=== PATIENT | female | born 1945 | race Caucasian/White ===

== ENCOUNTER 2021-01-29 13:22 | Emergency (ER) | payer MEDICARE, OTHER ==
[~2021-01-29] VITALS: Ht 144.8 cm; Wt 70.3 kg
--- NOTE | 2021-01-29 13:45 | NUR ---
Patient ELINOR Daughter from Home a Fall in backyard now having pain on Right Shoulder. Patient in [facility] with no respiratory distress noted. Respirations even an unlabored. Daughter at bedside. will continue to monitor
[2021-01-29] MEDS ORDERED: HYDROCODONE/APAP 5/325MG TABLET ONE (14:19)
[2021-01-29] MEDS ORDERED: HYDROCODONE/APAP 5/325MG TABLET PO ONE (14:30)
[2021-01-29] MEDS ORDERED: PROPOFOL 20 ML IV ONE ×2 (15:13→18:50)
--- NOTE | 2021-01-29 16:47 | NUR ---
CALLED DR PYLE, SPEAKING WITH DR BLAIR
[2021-01-29] MEDS ORDERED: OMEP20CA15 PO (17:05)
[2021-01-29] MEDS ORDERED: IBUP-1955 PO (17:05)
--- NOTE | 2021-01-29 17:06 | NUR ---
Closed reduction of right shoulder dislocation attempt unsuccessful x2. Sling applied and patient daughter at bedside.
[2021-01-29] MEDS ORDERED: BUPIVACAINE 0.25% 75 MG/30 ML VIAL ONE (17:56)
[2021-01-29] MEDS ORDERED: LIDOCAINE HCL/MPF 1% 30 ML VIAL IJ ONE (17:56)
--- NOTE | 2021-01-29 18:25 | NUR ---
PATIENT IN BED, RESTING COMFORTABLY, EASILY AROUSED. NO RESPIRATORY DISTRESS NOTED AT THIS TIME. RESPIRATIONS EVEN AND UNLABORED. WILL CONTINUE TO MONITOR.
[2021-01-29] MEDS ORDERED: PROPOFOL 200 MG/20 ML VIAL IV ONE ×3 (18:30→19:30)
[2021-01-29] MEDS ORDERED: MORPHINE SULFATE INJ 4 MG/ML DISP.SYRIN ONE (18:33)
--- NOTE | 2021-01-29 18:40 | NUR ---
DUPLICATE ORDER OF MORPHINE
[2021-01-29] MEDS ORDERED: ONDANSETRON HCL/PF 4 MG/2 ML VIAL ONE (18:43)
[2021-01-29] MEDS ORDERED: MORPHINE SULFATE INJ 10 MG/ML DISP.SYRIN IV ONE (19:00)
[2021-01-29] MEDS ORDERED: ONDANSETRON HCL/PF 4 MG/2 ML VIAL IV ONE (19:00)
[2021-01-29] MEDS ORDERED: MORPHINE SULFATE INJ 2 MG/ML DISP.SYRIN IV ONE (19:00)
[2021-01-29] MEDS ORDERED: HYDR-3972 PO (19:31)
--- NOTE | 2021-01-29 19:35 | NUR ---
Dr Del Rosario and Dr Jones attempted closed reduction of Right shoulder dislocation with success. Daughter at bedside. Patient in stable condition with no respiratory distress noted. respiration even and unlabored. will continue to monitor
--- NOTE | 2021-01-29 20:03 | NUR ---
Patient discharged to home in stable condition with daughter. Written and verbal after care instructions given. Patient verbalizes understanding of instruction.
[2021-01-29 22:55] VITALS: BP 158/88
== END 2021-01-29 20:03 | disposition home or self-care (01) ==
LOC: ER 13:43
DX: S43.014A Anterior dislocation of right humerus, initial encounter (principal); W01.0XXA Fall on same level from slipping, tripping and stumbling without subsequent striking against object, initial encounter; Y92.017 Garden or yard in single-family (private) house as the place of occurrence of the external cause
CPT/HCPCS: 23650; 71100; 73030 ×4; 73060; 87426; 96374; 96375; 99152; 99291; J2270; J2405; J2704 ×2; J3490 ×2; J7030; C9803; G0500

== ENCOUNTER 2022-01-25 13:37 | Emergency (ER) | payer MEDICARE, OTHER ==
[~2022-01-25] VITALS: Ht 149.9 cm; Wt 73.0 kg
[~2022-01-25 13:37] MED LIST: HYDR-3972 PO; IBUP-1955 PO; OMEP20CA15 PO
[2022-01-25] MEDS ORDERED: KETOROLAC TROMETHAMINE INJ 30 MG/ML VIAL IM ONE (15:00)
[2022-01-25] MEDS ORDERED: KETOROLAC TROMETHAMINE 15 MG/ML VIAL ONE (15:04)
--- NOTE | 2022-01-25 15:12 | NUR ---
TORADOL IM GIVEN ON LEFT DELTOID
--- NOTE | 2022-01-25 15:14 | NUR ---
PATTERNMAKER BENCH AT BEDSIDE FOR XRAY
--- NOTE | 2022-01-25 15:14 | NUR ---
PHLEB TECH AT BEDSIDE FOR BLOOD DRAW
[2022-01-25 15:38] LABS: BASOPHILS % (AUTO) 0.3 % (0.0-2.0); EOSINOPHILS % (AUTO) 0.4 % (0.0-6.0); HEMATOCRIT 38 % (33-45); HEMOGLOBIN 12.4 g/dL (11.5-14.8); LYMPHOCYTES # (AUTO) 3.5 K/uL (0.8-4.8); LYMPHOCYTES % (AUTO) 42.7 % (20.0-44.0); MEAN CORPUSCULAR HGB CONC 33 g/dl (31.0-36.0); MEAN CORPUSCULAR VOLUME 93 fL (82-100); MONOCYTES # (AUTO) 0.7 K/uL (0.1-1.30); MONOCYTES % (AUTO) 8.1 % (2.0-12.0); NEUTROPHILS % (AUTO) 48.5 % (43.0-81.0); PLATELET COUNT (AUTO) 256 K/uL (150-450); RED BLOOD CELL COUNT(AUTO) 4.04 MIL/uL (4.0-5.2); WHITE BLOOD COUNT (AUTO) 8.2 K/uL (4.3-11.0)
[2022-01-25 15:48] LABS: CALCIUM, SERUM 9.1 mg/dL (8.5-10.1); CARBON DIOXIDE 29 mmol/L (21-32); CHLORIDE 101 mmol/L (98-107); CREATININE 0.7 mg/dL (0.6-1.3); GLUCOSE 88 mg/dL (74-106); POTASSIUM 3.4 mmol/L (3.5-5.1); SODIUM SERUM 139 mmol/L (136-145); UREA NITROGEN, BLOOD 15 mg/dL (7-18)
[2022-01-25 16:01] LABS: ALANINE AMINOTRANSFERASE 54 U/L (12-78); ALKALINE PHOSPHATASE 77 U/L (46-116); ASPARTATE AMINOTRANSFERASE 37 U/L (15-37); BILIRUBIN,DIRECT 0.1 mg/dL (0.0-0.2); BILIRUBIN,TOTAL 0.5 mg/dL (0.2-1.0); TOTAL PROTEIN, SERUM 7.5 g/dL (6.4-8.2)
--- NOTE | 2022-01-25 17:29 | NUR ---
Patient discharged to home in stable condition. Written and verbal after care instructions given. Patient verbalizes understanding of instruction.
[2022-01-25 17:36] VITALS: BP 135/76
== END 2022-01-25 17:37 | disposition home or self-care (01) ==
LOC: ER 13:39
DX: M17.12 Unilateral primary osteoarthritis, left knee (principal); R60.0 Localized edema; M25.511 Pain in right shoulder; M81.0 Age-related osteoporosis without current pathological fracture; Z79.899 Other long term (current) drug therapy
CPT/HCPCS: 99284; 96372; 73564; 73030; 85025; 80048; 80076; 36415; 83880; J1885

== ENCOUNTER 2022-04-17 08:35 | Emergency (ER) | payer MEDICARE ==
[~2022-04-17] VITALS: Ht 154.9 cm; Wt 72.6 kg
[2022-04-17 08:51] VITALS: BP 188/75
[2022-04-17] MEDS ORDERED: IV NS 0.9% 1,000 ML IV ONE (09:00)
[2022-04-17] MEDS ORDERED: MORPHINE SULFATE INJ 2 MG/ML DISP.SYRIN IV ONE (09:00)
[2022-04-17] MEDS ORDERED: ONDANSETRON HCL/PF 4 MG/2 ML VIAL IV ONE (09:00)
[2022-04-17] MEDS ORDERED: MORPHINE SULFATE INJ 4 MG/ML DISP.SYRIN ONE (09:06)
[2022-04-17] MEDS ORDERED: ONDANSETRON HCL/PF 4 MG/2 ML VIAL ONE (09:06)
[2022-04-17] MEDS ORDERED: IBUP-1953 PO (09:51)
[2022-04-17] MEDS ORDERED: KETOROLAC TROMETHAMINE INJ 30 MG/ML VIAL ONE (09:58)
[2022-04-17] MEDS ORDERED: KETOROLAC TROMETHAMINE INJ 30 MG/ML VIAL IV ONE (10:00)
--- NOTE | 2022-04-17 10:06 | NUR ---
Patient discharged to home in stable condition. Written and verbal after care instructions given. Patient verbalizes understanding of instruction.
== END 2022-04-17 10:32 | disposition home or self-care (01) ==
LOC: ER 08:39
DX: M19.90 Unspecified osteoarthritis, unspecified site (principal); M25.511 Pain in right shoulder; Z79.899 Other long term (current) drug therapy
CPT/HCPCS: 99284; 96374; 96375; 96361; 73030; J2270; J1885; J2405; J7030

== ENCOUNTER 2022-06-12 11:07 | Inpatient (IN) | payer MEDICARE ==
[~2022-06-12] VITALS: Ht 152.4 cm; Wt 73.0 kg
[~2022-06-12 11:07] MED LIST changes: +IBUP-1953 PO
[2022-06-12] MEDS ORDERED: LIDOCAINE 5% (PATCH) 1 EA PATCH TP SCH (11:30)
[2022-06-12] MEDS ORDERED: ACETAMINOPHEN 325 MG TABLET PO ONE (11:30)
--- NOTE | 2022-06-12 11:30 | NUR ---
bib family c/o R side rib area pain, SOB x 3 days s/p GLF. AMBULATORY, PLACED IN BED, AAOX4, BREATHING EVEN AND UNLABORED SATURATING AT 97%RA
[2022-06-12] MEDS ORDERED: LIDOCAINE 5% (PATCH) 1 EA PATCH TP ONE ×2 (11:34→11:41)
[2022-06-12] MEDS ORDERED: ACETAMINOPHEN 325 MG TABLET ONE ×2 (11:35→11:41)
[2022-06-12] MEDS ORDERED: VANCOMYCIN 1 GM in IV D5W 250 ML IV ONE (15:00)
[2022-06-12] MEDS ORDERED: CEFEPIME 1 GM in IV D5W 50 ML IV ONE (15:00)
[2022-06-12 15:27] LABS: BASOPHILS % (AUTO) 0.1 % (0.0-2.0); EOSINOPHILS % (AUTO) 0.1 % (0.0-6.0); HEMATOCRIT 40 % (33-45); HEMOGLOBIN 13.2 g/dL (11.5-14.8); LYMPHOCYTES # (AUTO) 1.5 K/uL (0.8-4.8); LYMPHOCYTES % (AUTO) 15.4 % (20.0-44.0); MEAN CORPUSCULAR HGB CONC 33 g/dl (31.0-36.0); MEAN CORPUSCULAR VOLUME 97 fL (82-100); MONOCYTES # (AUTO) 0.6 K/uL (0.1-1.30); MONOCYTES % (AUTO) 6.1 % (2.0-12.0); NEUTROPHILS # (AUTO) 7.8 K/uL (1.8-8.9); NEUTROPHILS % (AUTO) 78.3 % (43.0-81.0); PLATELET COUNT (AUTO) 192 K/uL (150-450); RED BLOOD CELL COUNT(AUTO) 4.13 MIL/uL (4.0-5.2)
[2022-06-12 15:37] LABS: CALCIUM, SERUM 9.3 mg/dL (8.5-10.1); CREATININE 0.6 mg/dL (0.6-1.3)
[2022-06-12 15:53] LABS: ALBUMIN 3.7 g/dL (3.4-5.0); BILIRUBIN,DIRECT 0.1 mg/dL (0.0-0.2); BILIRUBIN,TOTAL 0.6 mg/dL (0.2-1.0); TOTAL PROTEIN, SERUM 7.4 g/dL (6.4-8.2)
--- NOTE | 2022-06-12 18:48 | NUR ---
MARISELA FROM [facility] [employer] CALLED FROM [phone] [phone]
[2022-06-12] MEDS ORDERED: MAGNESIUM HYDROXIDE 30 ML UDC PO PRN (19:00)
[2022-06-12] MEDS ORDERED: Z GUARD REMEDY 4 OZ OINT TP PRN (19:00)
[2022-06-12] MEDS ORDERED: MAG HYDROX/AL HYDROX/SIMETH 30 ML UDC PO PRN (19:00)
[2022-06-12] MEDS ORDERED: IPRATROPIUM NEB FS 0.5 MG/2.5 ML AMPUL.NEB NEB PRN (19:00)
[2022-06-12] MEDS ORDERED: ACETAMINOPHEN 325 MG TABLET PO PRN (19:00)
[2022-06-12] MEDS ORDERED: CEFTRIAXONE 1 G in IV D5W 50 ML IV SCH (19:00)
[2022-06-12] MEDS ORDERED: ALBUTEROL FS 2.5 MG/0.5 ML VIAL.NEB NEB PRN (19:00)
[2022-06-12] MEDS ORDERED: ONDANSETRON HCL/PF 4 MG/2 ML VIAL IVP PRN (19:00)
[2022-06-12] MEDS ORDERED: AZITHROMYCIN 500 MG in IV D5W 250 ML IV SCH (19:00)
--- NOTE | 2022-06-12 19:10 | NUR ---
[employer] PEER TO PEER
--- NOTE | 2022-06-12 19:41 | NUR ---
room 312-1
--- NOTE | 2022-06-12 20:05 | NUR ---
REPORT GIVEN TO GILBERTO SUTHERLAND ROOM 312-1 FOR JARED
[2022-06-12] MEDS ORDERED: IV NS 0.9% 250 ML IV ONE (20:26)
[2022-06-12] MEDS ORDERED: CT SWABBABLE VALVE TRANS SET 1 EA INFUS.SET MC ONE (20:26)
[2022-06-12] MEDS ORDERED: IOHEXOL-350 100 ML VIAL IV ONE (20:26)
[2022-06-12 21:00] VITALS: BP 162/68
--- NOTE | 2022-06-12 21:00 | NUR ---
DISPATCH MACHINE RUNNER ADMITTING NOTE PATIENT TRANSFERRED FROM ER TO 3RD FLOOR [facility] AT 2040H VIA GURNEY; PATIENT IS ALERT AND ORIENTED X 4, THAI SPEAKING BUT CAN UNDERSTAND A LITTLE CENTRAL AFRICAN, WITH DAUGHTER ACTING SECURITY INTELLIGENCE ANALYST; PATIENT ORIENTED TO STAFF AND ROOM; VITAL SIGNS TAKEN; ON ROOM AIR TOLERATING WELL AND NO RESPIRATORY DISTRESS NOTED; WITH IV ACCESS IN LEFT ARM, INTACT AND PATENT; HOOKED TO SLAB DEPILER OPERATOR CURRENTLY READING SINUS RHYTHM; WITH BRUISES ON LEFT LOWER LEG, RIGHT BUTTOCKS, ARM AND BREAST, ALL CAPTURED AND INSERTED IN CHARTS; SAFETY PRECAUTIONS IMPLEMENTED, BED IN LOW POSITION, LOCKED, SIDE RAILS UP X 3, CALL LIGHT WITHIN REACH; WILL CONTINUE TO MONITOR THROUGHOUT SHIFT
[2022-06-12] MEDS ORDERED: CEFTRIAXONE 1 G VIAL ONE (21:18)
[2022-06-12] MEDS: HYDROCODONE/APAP 5/325MG TABLET PO PRN (21:51)
[2022-06-12] MEDS ORDERED: AZITHROMYCIN 500 MG VIAL ONE (21:52)
[2022-06-12] MEDS: IV 1/2NS 1000 ML 1,000 ML IV PRN (22:46)
[2022-06-12] MEDS: APIXABAN 5 MG TABLET PO SCH (22:55)
--- NOTE | 2022-06-12 23:00 | NUR ---
DIRECTOR MISSION NOTE PATIENT CAME FROM ER AT 2040H; ROCEPHIN AND AZITHROMYCIN WERE ADMINISTERED AT 2131H AND 2250H RESPECTIVELY; IMAGING DEPARTMENT CALLED AT 2220H AND INFORMED THAT PATIENT WAS POSITIVE ON BILATERAL PULMONARY EMBOLISM. IMMEDIATELY INFORMED DR. SWARTZ AND HE ORDERED ELIQUIS BID. ADMINISTERED FIRST DOSE OF ELIQUIS AT 2255H.
[2022-06-12] MEDS: ZOLPIDEM TARTRATE 5 MG TABLET PO PRN (23:03)
--- NOTE | 2022-06-12 23:15 | NUR ---
CANVAS BASTER JUMPBASTING NOTE PATIENT ASKED FOR MEDICATION TO HELP HER FALL ASLEEP. ADMINISTERED TABITHA CHO AT 2303H.
[2022-06-13 05:43] LABS: BASOPHILS % (AUTO) 0.2 % (0.0-2.0); EOSINOPHILS % (AUTO) 0.2 % (0.0-6.0); HEMATOCRIT 38 % (33-45); HEMOGLOBIN 12.5 g/dL (11.5-14.8); LYMPHOCYTES # (AUTO) 2.4 K/uL (0.8-4.8); LYMPHOCYTES % (AUTO) 24.1 % (20.0-44.0); MEAN CORPUSCULAR HGB CONC 33 g/dl (31.0-36.0); MEAN CORPUSCULAR VOLUME 98 fL (82-100); MONOCYTES # (AUTO) 0.8 K/uL (0.1-1.30); MONOCYTES % (AUTO) 8.2 % (2.0-12.0); NEUTROPHILS # (AUTO) 6.8 K/uL (1.8-8.9); NEUTROPHILS % (AUTO) 67.3 % (43.0-81.0); PLATELET COUNT (AUTO) 179 K/uL (150-450); RED BLOOD CELL COUNT(AUTO) 3.89 MIL/uL (4.0-5.2); WHITE BLOOD COUNT (AUTO) 10.1 K/uL (4.3-11.0)
[2022-06-13 06:02] LABS: CALCIUM, SERUM 8.8 mg/dL (8.5-10.1); CREATININE 0.7 mg/dL (0.6-1.3); MAGNESIUM 2.2 mg/dL (1.8-2.4); PHOSPHORUS 4.3 mg/dL (2.5-4.9); POTASSIUM 3.7 mmol/L (3.5-5.1)
[2022-06-13 06:12] LABS: THYROID STIMULATING HORMONE 1.944 uIU/mL (0.358-3.74)
--- NOTE | 2022-06-13 06:48 | NUR ---
RECORDS COORDINATOR CLOSING NOTE PATIENT IS ALERT AND ORIENTED X 4, LAO SPEAKING BUT CAN UNDERSTAND A LITTLE FRISIAN, WITH DAUGHTER ACTING LAYOUT DESIGNER; VITAL SIGNS TAKEN; ON ROOM AIR TOLERATING WELL AND NO RESPIRATORY DISTRESS NOTED; WITH IV ACCESS IN RIGHT AND LEFT ARM, INTACT AND PATENT; HOOKED TO NITROGLYCERIN SEPARATOR OPERATOR CURRENTLY READING SINUS RHYTHM 77BPM; WITH BRUISES ON LEFT LOWER LEG, RIGHT BUTTOCKS, ARM AND BREAST, ALL CAPTURED AND INSERTED IN CHART; ADMINISTERED MEDICATIONS PRESCRIBED; MONITORED ACCORDINGLY; PATIENT'S NEEDS ATTENDED; SAFETY PRECAUTIONS IMPLEMENTED, BED IN LOW POSITION, LOCKED, SIDE RAILS UP X 3, CALL LIGHT WITHIN REACH; WILL ENDORSE TO AM NURSE FOR CONTINUITY OF CARE
--- NOTE | 2022-06-13 07:30 | NUR ---
RN Receiving Note Patient AOx4 able to express her own concerns. Daughter at bed side wanting to help out pt. Patient states no issues, no signs of distress or discomfort. Will continue to monitor throughout shift and provide care as needed. All safety precautions taken, call light and table within reach.
[2022-06-13 08:00] VITALS: BP 147/73
[2022-06-13] MEDS: PANTOPRAZOLE 40 MG TABLET.DR PO SCH (08:05)
[2022-06-13] MEDS: APIXABAN 5 MG TABLET PO SCH ×2 (08:06→17:11)
[2022-06-13] MEDS ORDERED: HYDR-4303 PO (09:35)
[2022-06-13] MEDS ORDERED: ALEN70TA80 PO (09:35)
[2022-06-13] MEDS ORDERED: ERGO500093 PO (09:35)
[2022-06-13 12:00] VITALS: BP 143/72
[2022-06-13 16:00] VITALS: BP 117/65
[2022-06-13] MEDS: IV 1/2NS 1000 ML 1,000 ML IV PRN (17:17)
[2022-06-13] MEDS ORDERED: CEFTRIAXONE 1 G in IV D5W 50 ML IV SCH (18:00)
--- NOTE | 2022-06-13 18:23 | NUR ---
RN Closing Note Patient AOx4 able to express her own concerns. Patient remained safe throughout shift. Provided care as needed and administered medications as prescribed. Patient made aware of care of plan, verbalized agreement. All safety precautions taken, call light and table within reach bed at lowest position.
--- NOTE | 2022-06-13 19:30 | NUR ---
MS CAD MANAGER INITIAL NOTES RECEIVED REPORT FROM AM NURSE AND SEEN PT IN BED AWAKE AND ALERT ALBANIAN SPEAKING LADY ONLY, WITH HER DAUGHTER AT THE BEDSIDE COUNSELOR/ART THERAPIST. PT STILL WITH IVF OF 1/2 NS AT 75ML/HR INFUSING ON HER LEFT ARM PATENT AND INTACT. BREATHING EVEN AND NON-LABORED . SKIN WARM AND DRY TO TOUCH. PT AWARE WHERE SHE AT . DAUGHTER IS THE ONE CALLING THE NURSE IF PT NEEDS SOME HELP OR NEEDS THE NURSE. KEPT HER WARM AND COMFORTABLE AT ALL TIMES. PLACE KYLE LIGHT AT REACH. WILL CONTINUE MONITORING.
[2022-06-13 20:00] VITALS: BP 157/55
[2022-06-13] MEDS ORDERED: AZITHROMYCIN 500 MG in IV D5W 250 ML IV SCH (20:00)
--- NOTE | 2022-06-13 21:00 | NUR ---
MS TERMITE CONTROL SERVICE REPRESENTATIVE NOTES PT DAUGHTER AND SAYING THAT HER MOM COMPLAINING OF SHOULDER AND RIBS PAIN. NORCO TABLET PO GIVEN ORDERED FOR HER PAIN 12/30 , KEPT HER WARM AND COMFORTABLE AT ALL TIMES. WILL CONTINUE MONITORING.
[2022-06-13] MEDS: HYDROCODONE/APAP 5/325MG TABLET PO PRN (21:06)
--- NOTE | 2022-06-13 22:06 | NUR ---
MS SANITARY INSPECTOR NOTES RE-ASSESS PAIN MEDICATION . PER PT DAUGHTER HER MOM FEEL BETTER AND PAIN RELIEVED.
[2022-06-13] MEDS: ZOLPIDEM TARTRATE 5 MG TABLET PO PRN (22:45)
--- NOTE | 2022-06-14 03:12 | NUR ---
TELE BUILDING CONSULTANT NOTES PT SLEEPING WELL NO SIGNS OF ANY DISCOMFORT NOTED. KEPT HER WARM AND COMFORTABLE AT ALL TIMES. IVF STILL INFUSING . TELE SINUS RHYTHM PER MONITOR. Addendum: 06/14/22 at 0317 by FRANK OLIVIER LVN DISREGARD THIS NOTES BELONGS TO OTHER PT.
--- NOTE | 2022-06-14 03:17 | NUR ---
MS YARELIS NOTES PT SLEEPING COMFORTABLY IN BED WITHOUT ANY DISTRESS OR ANY DISCOMFORT. KEPT HER WARM AND SAFE AT ALL TIMES. WILL CONTINUE MONITORING. PLACE CALL LIGHT AT REACH. DAUGHTER AT THE BEDSIDE.
[2022-06-14 06:18] LABS: BASOPHILS % (AUTO) 0.3 % (0.0-2.0); EOSINOPHILS % (AUTO) 0.3 % (0.0-6.0); HEMATOCRIT 40 % (33-45); HEMOGLOBIN 13.2 g/dL (11.5-14.8); LYMPHOCYTES # (AUTO) 3.6 K/uL (0.8-4.8); LYMPHOCYTES % (AUTO) 41.7 % (20.0-44.0); MEAN CORPUSCULAR HGB CONC 33 g/dl (31.0-36.0); MEAN CORPUSCULAR VOLUME 99 fL (82-100); MONOCYTES # (AUTO) 0.7 K/uL (0.1-1.30); MONOCYTES % (AUTO) 7.8 % (2.0-12.0); NEUTROPHILS # (AUTO) 4.3 K/uL (1.8-8.9); NEUTROPHILS % (AUTO) 49.9 % (43.0-81.0); PLATELET COUNT (AUTO) 196 K/uL (150-450); RED BLOOD CELL COUNT(AUTO) 4.03 MIL/uL (4.0-5.2); WHITE BLOOD COUNT (AUTO) 8.7 K/uL (4.3-11.0)
[2022-06-14 06:31] LABS: CALCIUM, SERUM 8.7 mg/dL (8.5-10.1); CREATININE 0.6 mg/dL (0.6-1.3); MAGNESIUM 2.2 mg/dL (1.8-2.4); PHOSPHORUS 4.2 mg/dL (2.5-4.9)
--- NOTE | 2022-06-14 07:38 | NUR ---
MS PIPELINE DISPATCH OPERATOR CLOSING NOTES PT RESTING COMFORTABLY IN BEC WITHOUT ANY DISTRESS OR ANY DISCOMFORT NOTED. ALL DUE MEDS GIVEN AND ALL NEEDS MET. PT STABLE THROUGHOUT THE NIGHT. KEPT HER WARM AND COMFORTABLE AT ALL TIMES. ENDORSE TO AM NURSE FOR CONTINUITY OF CARE.
--- NOTE | 2022-06-14 07:44 | NUR ---
RN OPENING NOTES PATIENT AWAKE IN BED COMFORTABLY, CONSCIOUS AND COHERENT, BED IN LOW POSITION CALL LIGHTS WITHIN REACH, NO COMPLAIN OF PAIN AND DISCOMFORT AT THIS TIME, ON O2 INHALATION AT 3LPM SATURATING WELL, NO SOB WAS OBSERVED, WITH ARM SLING AT RIGHT ARM SHOULDER. WITH ONGOING 0.45% NS 1L AT 75 ML/HR. SAFETY MEASURES MAINTAINED. WILL CONTINUE TO MONITOR
[2022-06-14] MEDS: PANTOPRAZOLE 40 MG TABLET.DR PO SCH (08:09)
[2022-06-14] MEDS: APIXABAN 5 MG TABLET PO SCH (08:19)
[2022-06-14 08:32] VITALS: BP 158/84
--- NOTE | 2022-06-14 09:22 | NUR ---
RN NOTES NOTED HEPLOCK AT RIGHT ARM AND LEFT ARM. WILL CONTINUE TO MONITOR
[2022-06-14] MEDS: HYDROCODONE/APAP 5/325MG TABLET PO PRN (09:58)
[2022-06-14] MEDS ORDERED: APIX5TAB PO (11:13)
[2022-06-14] MEDS ORDERED: PANT40TA49 PO (11:13)
[2022-06-14] MEDS ORDERED: AMOX-427 PO (11:13)
--- NOTE | 2022-06-14 12:34 | NUR ---
RN DISCHARGED NOTES ' RECEIVED ORDER FOR DISCHARGE. PATIENT IS A/0 X4, ABLE TO MAKE NEEDS KNOWN. PATIENT BREATHING EVENLY AND UNLABORED ON ROOM AIR, NO SIGNS OF DISTRESS NOTED. PATIENT DOES NOT COMPLAIN OF PAIN AT THIS TIME. PATIENT WAS GIVEN DISCHARGE INSTRUCTIONS BOTH VERBALLY AND IN WRITTEN FORM, VERBALIZED UNDERSTANDING. PATIENT BELONGINGS ACCOUNTED FOR BELONGINGS SHEET SIGNED. IV ACCESS REMOVED. PRESSURED DRESSING APPLIED ON BOTH IV SITE. NO SIGNS OF BLEEDING NOTED. PATIENT LEFT IN STABLE VIA PRIVATE CAR WITH FAMILY PRESENT.
== END 2022-06-14 12:35 | disposition home or self-care (01) | DRG 175 ==
LOC: ER 11:10 → TELE 20:04 → MED 06-13 10:50
PROVIDERS: ADMIT Student in an Organized Health Care Education/Training Program; ATTEND Student in an Organized Health Care Education/Training Program
DX: I26.99 Other pulmonary embolism without acute cor pulmonale (principal); J18.9 Pneumonia, unspecified organism; M81.0 Age-related osteoporosis without current pathological fracture; M19.90 Unspecified osteoarthritis, unspecified site; W19.XXXA Unspecified fall, initial encounter; Y93.9 Activity, unspecified; Y92.009 Unspecified place in unspecified non-institutional (private) residence as the place of occurrence of the external cause; R07.81 Pleurodynia; Z20.822 Contact with and (suspected) exposure to COVID-19
CPT/HCPCS: 36415; 71250-TC; 80048-TC; 80076-TC; 83605-TC; 83735-TC; 84100-TC; 84443-TC; 85025-TC; 85378-TC; 87040-TC; 87081-TC; 97116-TC; 97530-TC; C9803; G0378; J0456; J0692; J0696; J3370; J3490; J7040; J7050; J7060; Q9967

== ENCOUNTER → 2022-07-11 | Emergency (ER) | payer MEDICARE ==
[~2022-07-11] VITALS: Ht 152.4 cm; Wt 64.4 kg
[~2022-07-11] MED LIST changes: +ALEN70TA80 PO; +AMOX-427 PO; +APIX5TAB PO; +ERGO500093 PO; +FAMOTIDINE/PF INJ 20 MG/2 ML VIAL IV ONE; -HYDR-3972 PO; +HYDR-4303 PO; -IBUP-1953 PO; -IBUP-1955 PO; +IV NS 0.9% 1,000 ML BAG IV ONE; +METOCLOPRAMIDE HCL 10 MG/2 ML VIAL IV ONE; +METOCLOPRAMIDE HCL 10 MG/2 ML VIAL ONE; +MORPHINE SULFATE INJ 2 MG/ML DISP.SYRIN IV ONE; +MORPHINE SULFATE INJ 2 MG/ML DISP.SYRIN ONE; +ONDA4TAB11 PO; +ONDANSETRON HCL/PF - ER 4 MG/2 ML VIAL IV ONE; +ONDANSETRON HCL/PF 4 MG/2 ML VIAL ONE; +PANT40TA49 PO; +PROM25SU10 RC
--- NOTE | 2022-07-11 01:03 | NUR ---
IV LINE STARTED AT LAC 20G, BLOOD DRAWN AND SENT TO LAB
[2022-07-11 01:29] LABS: BASOPHILS % (AUTO) 0.1 % (0.0-2.0); EOSINOPHILS % (AUTO) 0.2 % (0.0-6.0); HEMATOCRIT 41 % (33-45); HEMOGLOBIN 13.6 g/dL (11.5-14.8); LYMPHOCYTES # (AUTO) 1.3 K/uL (0.8-4.8); LYMPHOCYTES % (AUTO) 11.2 % (20.0-44.0); MEAN CORPUSCULAR HGB CONC 33 g/dl (31.0-36.0); MEAN CORPUSCULAR VOLUME 94 fL (82-100); MONOCYTES # (AUTO) 0.4 K/uL (0.1-1.30); MONOCYTES % (AUTO) 3.7 % (2.0-12.0); NEUTROPHILS # (AUTO) 9.7 K/uL (1.8-8.9); NEUTROPHILS % (AUTO) 84.8 % (43.0-81.0); PLATELET COUNT (AUTO) 273 K/uL (150-450); RED BLOOD CELL COUNT(AUTO) 4.42 MIL/uL (4.0-5.2); WHITE BLOOD COUNT (AUTO) 11.4 K/uL (4.3-11.0)
[2022-07-11 01:37] LABS: CALCIUM, SERUM 9.3 mg/dL (8.5-10.1); CARBON DIOXIDE 24 mmol/L (21-32); CHLORIDE 100 mmol/L (98-107); CREATININE 0.7 mg/dL (0.6-1.3); GLUCOSE 128 mg/dL (74-106); POTASSIUM 3.4 mmol/L (3.5-5.1); SODIUM SERUM 135 mmol/L (136-145); UREA NITROGEN, BLOOD 10 mg/dL (7-18)
[2022-07-11 01:43] LABS: ALANINE AMINOTRANSFERASE 31 U/L (12-78); ALKALINE PHOSPHATASE 79 U/L (46-116); ASPARTATE AMINOTRANSFERASE 29 U/L (15-37); BILIRUBIN,DIRECT 0.2 mg/dL (0.0-0.2); BILIRUBIN,TOTAL 0.7 mg/dL (0.2-1.0); LIPASE 155 U/L (73-393); TOTAL PROTEIN, SERUM 8.1 g/dL (6.4-8.2)
--- NOTE | 2022-07-11 01:46 | NUR ---
EMT AT BEDSIDE FOR EKG
--- NOTE | 2022-07-11 02:15 | NUR ---
PT TAKEN TO CT
--- NOTE | 2022-07-11 04:00 | NUR ---
urine collected, sent to lab
[2022-07-11 04:29] LABS: BILIRUBIN,URINE NEGATIVE (NEGATIVE); COLOR,URINE YELLOW (YELLOW); LEUKOCYTE ESTERASE ,URINE NEGATIVE (NEGATIVE); NITRITE, URINE NEGATIVE (NEGATIVE); PH,URINE 5.5 (5.0-8.0); PROTEIN,URINE NEGATIVE (NEGATIVE); UGLUCOSE NEGATIVE (NEGATIVE); UROBILINOGEN,URINE 0.2 EU/dL (0.2)
[2022-07-11 04:37] LABS: BACTERIA,URINE None seen /HPF (None Seen); SQUAMOUS EPITHELIAL CELL,UR Few /HPF (None Seen)
--- NOTE | 2022-07-11 05:52 | NUR ---
Patient discharged to home in stable condition, accompanied by daughter. Written and verbal after care instructions given. Patient verbalizes understanding of instruction. IV removed. Catheter intact and site benign. Pressure and 4x4 applied to site. No bleeding noted.
[2022-07-11 05:54] VITALS: BP 129/67
== END | disposition home or self-care (01) ==
LOC: ER 00:51
DX: R10.13 Epigastric pain (principal); R10.32 Left lower quadrant pain; R11.2 Nausea with vomiting, unspecified; Z79.899 Other long term (current) drug therapy
CPT/HCPCS: 99285; 74176; 96374; 96375; 96361; 93005; 96376; 85025; 80048; 83690; 80076; 81001; 36415; 84484; J3490; J2765; J2405 ×4; J7030; J2270

== ENCOUNTER 2022-08-20 20:13 | Emergency (ER) | payer MEDICARE, OTHER ==
[~2022-08-20] VITALS: Ht 147.3 cm; Wt 63.5 kg
[~2022-08-20 20:13] MED LIST changes: -FAMOTIDINE/PF INJ 20 MG/2 ML VIAL IV ONE; -IV NS 0.9% 1,000 ML BAG IV ONE; -METOCLOPRAMIDE HCL 10 MG/2 ML VIAL IV ONE; -METOCLOPRAMIDE HCL 10 MG/2 ML VIAL ONE; -MORPHINE SULFATE INJ 2 MG/ML DISP.SYRIN IV ONE; -MORPHINE SULFATE INJ 2 MG/ML DISP.SYRIN ONE; -ONDANSETRON HCL/PF - ER 4 MG/2 ML VIAL IV ONE; -ONDANSETRON HCL/PF 4 MG/2 ML VIAL ONE
--- NOTE | 2022-08-20 20:50 | NUR ---
BIBDAUGHTER. ABD PAIN, NAUSEA VOMITING X 7 AND HEADACHE STARTED 1430. PLACED IN BED, AAOX4, BREATHING EVEN AND UNLABORED SATURATING AT 97%RA, IN PAIN 9/10 PS.
--- NOTE | 2022-08-20 21:10 | NUR ---
X-RAY TECH AT BEDSIDE
--- NOTE | 2022-08-20 21:17 | NUR ---
AT BEDSIDE FOR EVAL
[2022-08-20] MEDS ORDERED: ONDANSETRON HCL/PF 4 MG/2 ML VIAL ONE (21:21)
[2022-08-20] MEDS ORDERED: FAMOTIDINE/PF INJ 20 MG/2 ML VIAL IV ONE (21:30)
[2022-08-20] MEDS ORDERED: IV NS 0.9% 1,000 ML BAG IV ONE (21:30)
[2022-08-20] MEDS ORDERED: MORPHINE SULFATE INJ 2 MG/ML DISP.SYRIN IV ONE (21:30)
[2022-08-20] MEDS ORDERED: ONDANSETRON HCL/PF 4 MG/2 ML VIAL IVP ONE (21:30)
--- NOTE | 2022-08-20 21:30 | NUR ---
BLOOD DRAWN AND SENT TO LAB
[2022-08-20] MEDS ORDERED: MORPHINE SULFATE INJ 2 MG/ML DISP.SYRIN ONE (21:43)
[2022-08-20 21:50] LABS: BASOPHILS % (AUTO) 0.1 % (0.0-2.0); EOSINOPHILS % (AUTO) 0.3 % (0.0-6.0); HEMATOCRIT 42 % (33-45); HEMOGLOBIN 13.8 g/dL (11.5-14.8); LYMPHOCYTES # (AUTO) 1.7 K/uL (0.8-4.8); LYMPHOCYTES % (AUTO) 15.9 % (20.0-44.0); MEAN CORPUSCULAR HGB CONC 33 g/dl (31.0-36.0); MEAN CORPUSCULAR VOLUME 93 fL (82-100); MONOCYTES # (AUTO) 0.6 K/uL (0.1-1.30); MONOCYTES % (AUTO) 5.6 % (2.0-12.0); NEUTROPHILS # (AUTO) 8.4 K/uL (1.8-8.9); NEUTROPHILS % (AUTO) 78.1 % (43.0-81.0); PLATELET COUNT (AUTO) 212 K/uL (150-450); RED BLOOD CELL COUNT(AUTO) 4.57 MIL/uL (4.0-5.2); WHITE BLOOD COUNT (AUTO) 10.8 K/uL (4.3-11.0)
--- NOTE | 2022-08-20 21:52 | NUR ---
PATIENT TAKEN TO CT VIA RIKA
[2022-08-20 22:10] LABS: ALANINE AMINOTRANSFERASE 25 U/L (12-78); ALBUMIN 3.9 g/dL (3.4-5.0); ALKALINE PHOSPHATASE 70 U/L (46-116); ASPARTATE AMINOTRANSFERASE 21 U/L (15-37); BILIRUBIN,DIRECT 0.1 mg/dL (0.0-0.2); BILIRUBIN,TOTAL 0.4 mg/dL (0.2-1.0); CALCIUM, SERUM 8.9 mg/dL (8.5-10.1); CARBON DIOXIDE 26 mmol/L (21-32); CHLORIDE 104 mmol/L (98-107); CREATININE 0.7 mg/dL (0.6-1.3); GLUCOSE 138 mg/dL (74-106); LIPASE 130 U/L (73-393); SODIUM SERUM 141 mmol/L (136-145); TOTAL PROTEIN, SERUM 7.8 g/dL (6.4-8.2); UREA NITROGEN, BLOOD 18 mg/dL (7-18)
[2022-08-21 00:12] VITALS: BP 131/74
--- NOTE | 2022-08-21 00:13 | NUR ---
Patient discharged to home in stable condition. Written and verbal after care instructions given. Patient verbalizes understanding of instruction.
== END 2022-08-21 00:17 | disposition home or self-care (01) ==
LOC: ER 20:15
DX: R10.32 Left lower quadrant pain (principal); K21.9 Gastro-esophageal reflux disease without esophagitis; F32.A Depression, unspecified; Z79.899 Other long term (current) drug therapy
CPT/HCPCS: 99285; 74176; 96374; 71045; 96375; 96361; 93005; 85025; 80048; 83690; 80076; 36415; 84484; J2405; J7030; J2270

== ENCOUNTER 2023-05-06 16:49 | Emergency (ER) | payer MEDICARE ==
[~2023-05-06] VITALS: Ht 152.4 cm; Wt 61.2 kg
[2023-05-06] MEDS ORDERED: MORPHINE SULFATE INJ 2 MG/ML DISP.SYRIN ONE ×2 (17:29→18:07)
[2023-05-06] MEDS: MORPHINE SULFATE INJ 2 MG/ML DISP.SYRIN IV ONE ×2 (17:40→18:04)
[2023-05-06] MEDS ORDERED: MORPHINE SULFATE INJ 2 MG/ML DISP.SYRIN IV ONE ×2 (18:00→18:30)
[2023-05-06] MEDS ORDERED: HYDROCODONE/APAP 5/325MG TABLET PO ONE (20:00)
[2023-05-06] MEDS ORDERED: HYDROCODONE/APAP 5/325MG TABLET ONE (20:09)
[2023-05-07 02:15] VITALS: BP 187/99; TEMP 99; O2SAT 98
== END 2023-05-07 | disposition home or self-care (01) ==
LOC: ER 16:49
DX: M25.012 Hemarthrosis, left shoulder (principal); K21.9 Gastro-esophageal reflux disease without esophagitis; F32.A Depression, unspecified; Z79.899 Other long term (current) drug therapy
CPT/HCPCS: 99285; 96374; 73200; 73030; J2270 ×2

== ENCOUNTER 2023-06-03 16:33 | Inpatient (IN) | payer MEDICARE ==
[~2023-06-03] VITALS: Ht 149.9 cm; Wt 67.6 kg
[2023-06-03] MEDS ORDERED: IV NS 0.9% 500 ML BAG IV ONE (17:30)
[2023-06-03] MEDS ORDERED: ONDANSETRON HCL/PF 4 MG/2 ML VIAL IVP ONE (17:30)
[2023-06-03] MEDS ORDERED: MORPHINE SULFATE INJ 2 MG/ML DISP.SYRIN IV ONE (17:30)
[2023-06-03] MEDS ORDERED: ONDANSETRON HCL/PF 4 MG/2 ML VIAL ONE (17:39)
[2023-06-03] MEDS ORDERED: MORPHINE SULFATE INJ 4 MG/ML DISP.SYRIN ONE (17:40)
[2023-06-03 18:01] LABS: BASOPHILS % (AUTO) 0.4 % (0.0-2.0); EOSINOPHILS % (AUTO) 0.5 % (0.0-6.0); HEMATOCRIT 35 % (33-45); HEMOGLOBIN 11.8 g/dL (11.5-14.8); LYMPHOCYTES # (AUTO) 2.8 K/uL (0.8-4.8); LYMPHOCYTES % (AUTO) 47.2 % (20.0-44.0); MEAN CORPUSCULAR HEMOGLOBIN 30 PG (26.0-33.0); MEAN CORPUSCULAR HGB CONC 34 g/dl (31.0-36.0); MEAN CORPUSCULAR VOLUME 91 fL (82-100); MONOCYTES # (AUTO) 0.4 K/uL (0.1-1.30); NEUTROPHILS # (AUTO) 2.7 K/uL (1.8-8.9); NEUTROPHILS % (AUTO) 45.9 % (43.0-81.0); PLATELET COUNT (AUTO) 243 K/uL (150-450); RED BLOOD CELL COUNT(AUTO) 3.88 MIL/uL (4.0-5.2); RED CELL DISTRIBUTION WIDTH 13.7 % (11.5-15.0)
[2023-06-03 18:13] LABS: CALCIUM, SERUM 9.9 mg/dL (8.5-10.1); CARBON DIOXIDE 22 mmol/L (21-32); CHLORIDE 98 mmol/L (98-107); CREATININE 0.7 mg/dL (0.6-1.3); GLUCOSE 98 mg/dL (74-106); POTASSIUM 3.7 mmol/L (3.5-5.1); SODIUM SERUM 135 mmol/L (136-145); UREA NITROGEN, BLOOD 13 mg/dL (7-18)
[2023-06-03 18:19] LABS: ALANINE AMINOTRANSFERASE 19 U/L (12-78); ALBUMIN 4.9 g/dL (3.4-5.0); ALKALINE PHOSPHATASE 102 U/L (46-116); ASPARTATE AMINOTRANSFERASE 28 U/L (15-37); BILIRUBIN,DIRECT 0.1 mg/dL (0.0-0.2); BILIRUBIN,TOTAL 0.4 mg/dL (0.2-1.0); TOTAL PROTEIN, SERUM 9.4 g/dL (6.4-8.2)
[2023-06-03 18:25] LABS: INR 1.14 (0.91-1.10); PARTIAL THROMBOPLASTIN TIME 39.4 SEC (24.3-34.3)
[2023-06-03] MEDS ORDERED: GEMF600T90 PO (18:29)
[2023-06-03] MEDS ORDERED: GABA-532 PO (18:29)
[2023-06-03] MEDS ORDERED: APIX5TAB PO (18:29)
[2023-06-03] MEDS ORDERED: HYDROCODONE/APAP 5/325MG TABLET ONE ×2 (19:30→20:59)
[2023-06-03] MEDS ORDERED: HYDROCODONE/APAP 5/325MG TABLET PO ONE ×2 (19:30→21:00)
[2023-06-03] MEDS ORDERED: MAG HYDROX/AL HYDROX/SIMETH 30 ML UDC PO PRN (20:00)
[2023-06-03] MEDS ORDERED: Z GUARD REMEDY 4 OZ OINT TP PRN (20:00)
[2023-06-03] MEDS ORDERED: ACETAMINOPHEN 325 MG TABLET PO PRN (20:00)
[2023-06-03] MEDS ORDERED: ONDANSETRON HCL/PF 4 MG/2 ML VIAL IVP PRN (20:00)
[2023-06-03] MEDS ORDERED: TEMAZEPAM 15 MG CAPSULE PO PRN (20:00)
[2023-06-03] MEDS ORDERED: MAGNESIUM HYDROXIDE 30 ML UDC PO PRN (20:00)
[2023-06-03] MEDS ORDERED: MORPHINE SULFATE INJ 4 MG/ML DISP.SYRIN IV PRN (20:30)
[2023-06-03] MEDS: clonazePAM 1 MG TABLET PO PRN (22:52)
[2023-06-03 23:30] VITALS: BP 165/66; TEMP 98.8; O2SAT 96
[2023-06-04 06:59] LABS: BASOPHILS % (AUTO) 0.3 % (0.0-2.0); EOSINOPHILS % (AUTO) 0.6 % (0.0-6.0); HEMATOCRIT 33 % (33-45); HEMOGLOBIN 11.4 g/dL (11.5-14.8); LYMPHOCYTES # (AUTO) 2.3 K/uL (0.8-4.8); LYMPHOCYTES % (AUTO) 37.4 % (20.0-44.0); MEAN CORPUSCULAR HEMOGLOBIN 31 PG (26.0-33.0); MEAN CORPUSCULAR HGB CONC 35 g/dl (31.0-36.0); MEAN CORPUSCULAR VOLUME 90 fL (82-100); MONOCYTES # (AUTO) 0.6 K/uL (0.1-1.30); MONOCYTES % (AUTO) 9.4 % (2.0-12.0); NEUTROPHILS # (AUTO) 3.2 K/uL (1.8-8.9); NEUTROPHILS % (AUTO) 52.3 % (43.0-81.0); PLATELET COUNT (AUTO) 223 K/uL (150-450); RED BLOOD CELL COUNT(AUTO) 3.68 MIL/uL (4.0-5.2); RED CELL DISTRIBUTION WIDTH 13.2 % (11.5-15.0); WHITE BLOOD COUNT (AUTO) 6.1 K/uL (4.3-11.0)
[2023-06-04 07:31] LABS: CALCIUM, SERUM 9.9 mg/dL (8.5-10.1); CREATININE 0.6 mg/dL (0.6-1.3); MAGNESIUM 1.9 mg/dL (1.8-2.4); POTASSIUM 3.7 mmol/L (3.5-5.1)
[2023-06-04 08:00] VITALS: BP 158/67; TEMP 98.8; O2SAT 97
[2023-06-04] MEDS: HYDROCODONE/APAP 5/325MG TABLET PO PRN ×3 (08:25→16:40)
[2023-06-04 12:00] VITALS: BP 143/85; TEMP 98.6; O2SAT 96
[2023-06-04 16:00] VITALS: BP 133/60; TEMP 98; O2SAT 94
[2023-06-04] MEDS: GEMFIBROZIL 600 MG TABLET PO SCH (16:40)
[2023-06-04 20:00] VITALS: BP 144/65; TEMP 98.3; O2SAT 95
[2023-06-04] MEDS: GABAPENTIN 100 MG CAPSULE PO SCH ×2 (21:07→22:29)
[2023-06-04] MEDS: clonazePAM 1 MG TABLET PO PRN (23:38)
[2023-06-05] VITALS: BP 142/65; TEMP 98.2; O2SAT 96
[2023-06-05 04:00] VITALS: BP 129/59; TEMP 98.1; O2SAT 95
[2023-06-05 07:08] LABS: BASOPHILS % (AUTO) 0.5 % (0.0-2.0); EOSINOPHILS # (AUTO) 0.1 K/uL (0.0-0.7); EOSINOPHILS % (AUTO) 1.5 % (0.0-6.0); HEMATOCRIT 32 % (33-45); HEMOGLOBIN 11.1 g/dL (11.5-14.8); LYMPHOCYTES # (AUTO) 3.3 K/uL (0.8-4.8); LYMPHOCYTES % (AUTO) 54.6 % (20.0-44.0); MEAN CORPUSCULAR HEMOGLOBIN 31 PG (26.0-33.0); MEAN CORPUSCULAR HGB CONC 35 g/dl (31.0-36.0); MEAN CORPUSCULAR VOLUME 90 fL (82-100); MONOCYTES # (AUTO) 0.6 K/uL (0.1-1.30); MONOCYTES % (AUTO) 9.4 % (2.0-12.0); PLATELET COUNT (AUTO) 221 K/uL (150-450); RED BLOOD CELL COUNT(AUTO) 3.55 MIL/uL (4.0-5.2); RED CELL DISTRIBUTION WIDTH 13.4 % (11.5-15.0); WHITE BLOOD COUNT (AUTO) 5.9 K/uL (4.3-11.0)
[2023-06-05 07:29] LABS: CALCIUM, SERUM 10.1 mg/dL (8.5-10.1); CREATININE 0.6 mg/dL (0.6-1.3); MAGNESIUM 1.9 mg/dL (1.8-2.4); PHOSPHORUS 5.4 mg/dL (2.5-4.9); POTASSIUM 3.8 mmol/L (3.5-5.1)
[2023-06-05 07:30] VITALS: BP 157/61; TEMP 99.1; O2SAT 95
[2023-06-05] MEDS: HYDROCODONE/APAP 5/325MG TABLET PO PRN ×3 (09:05→21:59)
[2023-06-05] MEDS: GEMFIBROZIL 600 MG TABLET PO SCH ×2 (09:05→16:40)
[2023-06-05] MEDS ORDERED: ALENDRONATE 70 MG TABLET PO SCH (14:00)
[2023-06-05 16:00] VITALS: BP 137/64; TEMP 98.1; O2SAT 94
[2023-06-05 21:20] VITALS: BP 142/52; TEMP 98.8; O2SAT 97
[2023-06-05] MEDS: GABAPENTIN 100 MG CAPSULE PO SCH (21:49)
[2023-06-05 21:58] VITALS: BP 142/52; TEMP 98.8; O2SAT 97
[2023-06-06] VITALS (8 sets, daily range): BP systolic 125–147; BP diastolic 56–83; TEMP 98.1–98.8; O2SAT 93–96
[2023-06-06 07:20] LABS: BASOPHILS % (AUTO) 0.5 % (0.0-2.0); EOSINOPHILS # (AUTO) 0.1 K/uL (0.0-0.7); EOSINOPHILS % (AUTO) 1.7 % (0.0-6.0); HEMATOCRIT 32 % (33-45); HEMOGLOBIN 10.8 g/dL (11.5-14.8); LYMPHOCYTES # (AUTO) 3.1 K/uL (0.8-4.8); LYMPHOCYTES % (AUTO) 57.1 % (20.0-44.0); MEAN CORPUSCULAR HEMOGLOBIN 31 PG (26.0-33.0); MEAN CORPUSCULAR HGB CONC 34 g/dl (31.0-36.0); MEAN CORPUSCULAR VOLUME 91 fL (82-100); MONOCYTES # (AUTO) 0.6 K/uL (0.1-1.30); MONOCYTES % (AUTO) 10.3 % (2.0-12.0); NEUTROPHILS # (AUTO) 1.7 K/uL (1.8-8.9); NEUTROPHILS % (AUTO) 30.4 % (43.0-81.0); PLATELET COUNT (AUTO) 228 K/uL (150-450); RED BLOOD CELL COUNT(AUTO) 3.54 MIL/uL (4.0-5.2); RED CELL DISTRIBUTION WIDTH 13.4 % (11.5-15.0); WHITE BLOOD COUNT (AUTO) 5.5 K/uL (4.3-11.0)
[2023-06-06 07:31] LABS: CALCIUM, SERUM 9.8 mg/dL (8.5-10.1); CARBON DIOXIDE 24 mmol/L (21-32); CHLORIDE 99 mmol/L (98-107); CREATININE 0.7 mg/dL (0.6-1.3); GLUCOSE 90 mg/dL (74-106); PHOSPHORUS 5.4 mg/dL (2.5-4.9); POTASSIUM 3.9 mmol/L (3.5-5.1); SODIUM SERUM 134 mmol/L (136-145); UREA NITROGEN, BLOOD 22 mg/dL (7-18)
[2023-06-06] MEDS: HYDROCODONE/APAP 5/325MG TABLET PO PRN ×4 (08:05→21:11)
[2023-06-06] MEDS: GEMFIBROZIL 600 MG TABLET PO SCH ×2 (08:35→17:28)
[2023-06-06 21:22] LABS: INR 1.08 (0.91-1.10); PARTIAL THROMBOPLASTIN TIME 35.2 SEC (24.3-34.3); PROTHROMBIN TIME 11.4 SECS (9.2-11.1)
[2023-06-06] MEDS: GABAPENTIN 100 MG CAPSULE PO SCH (22:42)
[2023-06-07 04:00] VITALS: BP 140/75; TEMP 98; O2SAT 95
[2023-06-07] MEDS: IV NS 0.9% 1,000 ML IV SCH ×2 (06:53→22:48)
[2023-06-07] MEDS ORDERED: IV NS 0.9% 1,000 ML BAG IV SCH (07:00)
[2023-06-07 07:24] LABS: BASOPHILS % (AUTO) 0.5 % (0.0-2.0); EOSINOPHILS # (AUTO) 0.1 K/uL (0.0-0.7); EOSINOPHILS % (AUTO) 1.6 % (0.0-6.0); HEMATOCRIT 31 % (33-45); HEMOGLOBIN 10.9 g/dL (11.5-14.8); LYMPHOCYTES # (AUTO) 2.8 K/uL (0.8-4.8); LYMPHOCYTES % (AUTO) 53.4 % (20.0-44.0); MEAN CORPUSCULAR HEMOGLOBIN 31 PG (26.0-33.0); MEAN CORPUSCULAR HGB CONC 35 g/dl (31.0-36.0); MEAN CORPUSCULAR VOLUME 90 fL (82-100); MONOCYTES # (AUTO) 0.5 K/uL (0.1-1.30); MONOCYTES % (AUTO) 9.8 % (2.0-12.0); NEUTROPHILS # (AUTO) 1.8 K/uL (1.8-8.9); NEUTROPHILS % (AUTO) 34.7 % (43.0-81.0); PLATELET COUNT (AUTO) 230 K/uL (150-450); RED BLOOD CELL COUNT(AUTO) 3.47 MIL/uL (4.0-5.2); RED CELL DISTRIBUTION WIDTH 13.5 % (11.5-15.0); WHITE BLOOD COUNT (AUTO) 5.3 K/uL (4.3-11.0)
[2023-06-07 07:28] LABS: CALCIUM, SERUM 9.7 mg/dL (8.5-10.1); CREATININE 0.7 mg/dL (0.6-1.3); PHOSPHORUS 5.2 mg/dL (2.5-4.9); POTASSIUM 3.9 mmol/L (3.5-5.1)
[2023-06-07] MEDS: GEMFIBROZIL 600 MG TABLET PO SCH ×2 (09:16→17:00)
[2023-06-07 15:47] LABS: IRON, SERUM 32 ug/dl (50-175); TOTAL IRON BINDING CAPACITY 336 ug/dl (250-450)
[2023-06-07] MEDS ORDERED: IOHEXOL 240MG/ML 50 ML IV ONE (15:57)
[2023-06-07] MEDS ORDERED: BUPIVACAINE 0.25% 75 MG/30 ML VIAL ONE (15:58)
[2023-06-07] MEDS ORDERED: ANESTHESIA TRAY IN PYXIS 1 EA TRAY MC ONE (15:58)
[2023-06-07] MEDS ORDERED: CELLULOSE,OXIDIZED 1 EACH EACH MC ONE (15:58)
[2023-06-07] MEDS ORDERED: LIDOCAINE 1% INJ 50 ML MDV IJ ONE (15:58)
[2023-06-07] MEDS ORDERED: GELATIN SPONGE,ABSORBABLE 1 EA SPONGE TP ONE (15:59)
[2023-06-07 16:04] LABS: FERRITIN 106 ng/mL (8-388)
[2023-06-07] MEDS ORDERED: FENTANYL PF 100MCG/2ML AMPUL ONE (16:27)
[2023-06-07] MEDS ORDERED: FAMOTIDINE/PF INJ 20 MG/2 ML VIAL IV ONE (16:27)
[2023-06-07 20:00] VITALS: BP 144/67; TEMP 98.8; O2SAT 97
[2023-06-07 20:35] VITALS: BP 144/67; TEMP 98.8; O2SAT 97
[2023-06-07] MEDS: clonazePAM 1 MG TABLET PO PRN (22:56)
[2023-06-07] MEDS: GABAPENTIN 100 MG CAPSULE PO SCH (23:12)
[2023-06-08 06:50] LABS: BASOPHILS % (AUTO) 0.4 % (0.0-2.0); EOSINOPHILS # (AUTO) 0.1 K/uL (0.0-0.7); EOSINOPHILS % (AUTO) 1.1 % (0.0-6.0); HEMATOCRIT 29 % (33-45); LYMPHOCYTES % (AUTO) 34.7 % (20.0-44.0); MEAN CORPUSCULAR HEMOGLOBIN 31 PG (26.0-33.0); MEAN CORPUSCULAR HGB CONC 34 g/dl (31.0-36.0); MEAN CORPUSCULAR VOLUME 90 fL (82-100); MONOCYTES # (AUTO) 0.6 K/uL (0.1-1.30); MONOCYTES % (AUTO) 10.3 % (2.0-12.0); NEUTROPHILS # (AUTO) 3.1 K/uL (1.8-8.9); NEUTROPHILS % (AUTO) 53.5 % (43.0-81.0); PLATELET COUNT (AUTO) 215 K/uL (150-450); RED BLOOD CELL COUNT(AUTO) 3.21 MIL/uL (4.0-5.2); RED CELL DISTRIBUTION WIDTH 13.3 % (11.5-15.0); WHITE BLOOD COUNT (AUTO) 5.8 K/uL (4.3-11.0)
[2023-06-08 06:59] LABS: CALCIUM, SERUM 9.6 mg/dL (8.5-10.1); CREATININE 0.6 mg/dL (0.6-1.3); MAGNESIUM 1.9 mg/dL (1.8-2.4); PHOSPHORUS 4.1 mg/dL (2.5-4.9); POTASSIUM 3.4 mmol/L (3.5-5.1)
[2023-06-08 07:06] LABS: HOMOCYSTEINE, PLASMA 16.4 umol/L (0.0-19.2); IMMUNOGLOBULIN A, SERUM 223 mg/dL (64-422); IMMUNOGLOBULIN G, SERUM 1378 mg/dL (586-1602); IMMUNOGLOBULIN M, SERUM 197 mg/dL (26-217)
[2023-06-08 08:00] VITALS: BP 130/60; TEMP 97.9; O2SAT 95
[2023-06-08 08:09] LABS: FOLIC ACID > 20.0 ng/mL (>3.0)
[2023-06-08] MEDS: GEMFIBROZIL 600 MG TABLET PO SCH (08:36)
[2023-06-08] MEDS: HYDROCODONE/APAP 5/325MG TABLET PO PRN ×2 (08:36→12:56)
[2023-06-08] MEDS ORDERED: POTASSIUM CHLORIDE 20 MEQ POWDER PACKET PO ONE (09:00)
[2023-06-08] MEDS: IV NS 0.9% 1,000 ML IV SCH (09:40)
[2023-06-08 10:11] LABS: *SPE A/G RATIO 1.1 (0.7-1.7); *SPE ALPHA-1-GLOBULIN 0.3 g/dL (0.0-0.4); *SPE GLOBULIN, TOTAL 3.8 g/dL (2.2-3.9); *SPE M-SPIKE Not Observed g/dL (Not Observed); *SPE PROTEIN TOTAL 7.8 g/dL (6.0-8.5); *SPEGAMMA GLOBULIN 1.5 g/dL (0.4-1.8)
[2023-06-08] MEDS ORDERED: IV NS 0.9% 250 ML IV ONE (10:28)
[2023-06-08] MEDS ORDERED: IOHEXOL-350 100 ML VIAL IV ONE (10:28)
[2023-06-08] MEDS ORDERED: FERROUS SULFATE (325 MG) 325 MG/TAB TABLET PO SCH (11:30)
[2023-06-08 12:08] LABS: FREE KAPPA LT CHAINS SERUM 39.5 mg/L (3.3-19.4); FREE LAMBDA LT CHAIN SERUM 18.6 mg/L (5.7-26.3); KAPPA/LAMBDA RATIO SERUM 2.12 (0.26-1.65)
[2023-06-08] MEDS ORDERED: FERR325T28 PO (12:08)
[2023-06-08] MEDS ORDERED: IBUP-1958 PO (15:40)
== END 2023-06-08 16:15 | disposition home or self-care (01) | DRG 554 ==
LOC: ER 16:45 → TELE 21:08 → MED 06-07 14:48
PROVIDERS: ADMIT Nurse Practitioner Acute Care; ATTEND Internal Medicine
PROC: 06H03DZ Insertion of Intraluminal Device into Inferior Vena Cava, Percutaneous Approach (ICD-10-PCS; principal; 2023-06-07)
PROC: B519YZA Fluoroscopy of Inferior Vena Cava using Other Contrast, Guidance (ICD-10-PCS; 2023-06-07)
DX: M25.061 Hemarthrosis, right knee (principal); I48.91 Unspecified atrial fibrillation; M81.0 Age-related osteoporosis without current pathological fracture; K21.9 Gastro-esophageal reflux disease without esophagitis; D50.9 Iron deficiency anemia, unspecified; E78.5 Hyperlipidemia, unspecified; F32.A Depression, unspecified; Z79.01 Long term (current) use of anticoagulants; Z86.711 Personal history of pulmonary embolism; Z96.611 Presence of right artificial shoulder joint; M19.012 Primary osteoarthritis, left shoulder
CPT/HCPCS: 36415; 71045-TC; 73700-TC; 80048-TC; 80076-TC; 81240; 81241; 82272-TC; 82607-TC; 82728-TC; 82784; 83090; 83540-TC; 83735-TC; 84100-TC; 84155; 84165; 84484-TC; 85025-TC; 85300; 85301; 85303; 85378-TC; 85610-TC; 85613; 85670; 85705; 85730-TC; 85732; 86147; 86334; 86850-TC; 93307-TC; 93970-TC; A4223; A6209; C1769; C1880; G0378; J0690; J1644; J2270; J2405; J2704; J2765; J3010; J3490; J7030; J7040; J7050; Q9966; Q9967

== ENCOUNTER 2025-05-15 23:21 | Inpatient (IN) | payer MEDICARE, OTHER ==
[~2025-05-15] VITALS: Ht 147.3 cm; Wt 62.1 kg
[~2025-05-15 23:21] MED LIST changes: -AMOX-427 PO; -ERGO500093 PO; +FERR325T28 PO; +GABA-532 PO; +GEMF600T90 PO; -HYDR-4303 PO; +IBUP-1958 PO; -OMEP20CA15 PO; -ONDA4TAB11 PO; -PANT40TA49 PO; -PROM25SU10 RC
[2025-05-16] MEDS ORDERED: IV LR 1000 ML 1,000 ML BAG IV ONE
[2025-05-16] MEDS ORDERED: ONDANSETRON HCL/PF 4 MG/2 ML VIAL ONE (00:06)
[2025-05-16 00:20] LABS: PLATELET COUNT (AUTO) 182 K/uL (150-450); RED BLOOD CELL COUNT(AUTO) 4.31 MIL/uL (4.0-5.2); RED CELL DISTRIBUTION WIDTH 13.8 % (11.5-15.0); WHITE BLOOD COUNT (AUTO) 7.4 K/uL (4.3-11.0)
[2025-05-16] MEDS: IV NS 0.9% 1,000 ML BAG IV ONE (00:30)
[2025-05-16 00:31] LABS: CALCIUM, SERUM 8.2 mg/dL (8.5-10.1); CREATININE 0.8 mg/dL (0.6-1.3); SODIUM SERUM 138 mmol/L (136-145); UREA NITROGEN, BLOOD 28 mg/dL (7-18)
[2025-05-16] MEDS: ONDANSETRON HCL/PF 4 MG/2 ML VIAL IVP ONE (00:35)
[2025-05-16 00:36] LABS: INR 1.08 (0.91-1.10)
[2025-05-16 00:38] LABS: LACTIC ACID 2.4 mmol/L (0.4-2.0)
[2025-05-16 00:41] LABS: ASPARTATE AMINOTRANSFERASE 27 U/L (15-37); TOTAL PROTEIN, SERUM 8.3 g/dL (6.4-8.2)
[2025-05-16] MEDS ORDERED: CIPROFLOXACIN IV RTU 200 ML IV ONE (01:17)
[2025-05-16] MEDS ORDERED: METRONIDAZOLE 500MG/ NS 100ML 100 ML IV ONE (01:17)
[2025-05-16] MEDS: CIPROFLOXACIN IV RTU 400 MG in PREMIX 1 EA IV SCH ×2 (01:34→12:04)
[2025-05-16] MEDS ORDERED: IV NS 0.9% 1,000 ML IV PRN (02:00)
[2025-05-16] MEDS ORDERED: ONDANSETRON HCL/PF 4 MG/2 ML VIAL IVP PRN (02:00)
[2025-05-16] MEDS ORDERED: MAG HYDROX/AL HYDROX/SIMETH 30 ML UDC PO PRN (02:00)
[2025-05-16] MEDS ORDERED: MAGNESIUM HYDROXIDE 30 ML UDC PO PRN (02:00)
[2025-05-16] MEDS ORDERED: Z GUARD REMEDY 4 OZ OINT TP PRN (02:00)
[2025-05-16] MEDS ORDERED: HYDROCODONE/APAP 5/325MG TABLET PO PRN (02:00)
[2025-05-16 02:12] LABS: APPEARANCE,URINE CLEAR (CLEAR); BLOOD, URINE NEGATIVE Ery/uL (NEGATIVE); LEUKOCYTE ESTERASE ,URINE NEGATIVE (NEGATIVE); NITRITE, URINE NEGATIVE (NEGATIVE); UGLUCOSE NEGATIVE (NEGATIVE)
[2025-05-16] MEDS: FLAGYL/NS RTU 500 MG/100 ML PIGGYBACK IV ONE (02:17)
[2025-05-16 02:26] LABS: ADD URINE CULTURE NO
[2025-05-16 03:30] VITALS: BP 145/64; TEMP 98; O2SAT 97
[2025-05-16] MEDS: ACETAMINOPHEN 325 MG TABLET PO PRN (04:14)
[2025-05-16] MEDS: PANTOPRAZOLE 40 MG TABLET.DR PO SCH (06:36)
[2025-05-16 07:00] VITALS: BP 113/48; TEMP 97.3; O2SAT 96
[2025-05-16] MEDS: METRONIDAZOLE 500MG/ NS 100ML 500 MG in PREMIX 1 EA IV SCH (08:08)
[2025-05-16] MEDS ORDERED: ACET325T53 PO (08:14)
[2025-05-16] MEDS ORDERED: PANT40TA49 PO (08:14)
[2025-05-16] MEDS ORDERED: ERGO500093 PO (08:14)
[2025-05-16] MEDS ORDERED: ATOR20TA PO (08:14)
[2025-05-16] MEDS ORDERED: ETAN50PE3 PO (08:14)
[2025-05-16] MEDS ORDERED: [UNRECOGNIZED DRUG - OTHER] PO (08:14)
[2025-05-16] MEDS ORDERED: ONDA-97 PO (08:14)
[2025-05-16] MEDS ORDERED: LOSA50TA39 PO (08:14)
[2025-05-16] MEDS ORDERED: CIPROFLOXACIN IV RTU 200 MG in PREMIX 1 EA IV SCH (13:30)
[2025-05-16] MEDS: IV NS 0.9% 1,000 ML IV PRN (14:36)
[2025-05-16 16:00] VITALS: BP 119/55; TEMP 98.1; O2SAT 97
[2025-05-16 20:00] VITALS: BP 128/51; TEMP 98.6; O2SAT 97
[2025-05-16 20:52] VITALS: BP 128/51; TEMP 98.6; O2SAT 97
[2025-05-16] MEDS: TEMAZEPAM 15 MG CAPSULE PO PRN (21:23)
[2025-05-17 07:00] VITALS: BP 144/50; TEMP 97.7; O2SAT 97
[2025-05-17 07:24] LABS: PLATELET COUNT (AUTO) 134 K/uL (150-450); RED BLOOD CELL COUNT(AUTO) 3.65 MIL/uL (4.0-5.2); RED CELL DISTRIBUTION WIDTH 14.2 % (11.5-15.0); WHITE BLOOD COUNT (AUTO) 3.3 K/uL (4.3-11.0)
[2025-05-17 07:51] LABS: CALCIUM, SERUM 7.3 mg/dL (8.5-10.1); CREATININE 0.6 mg/dL (0.6-1.3); PHOSPHORUS 2.1 mg/dL (2.5-4.9); SODIUM SERUM 143.0 mmol/L (136-145); UREA NITROGEN, BLOOD 8.0 mg/dL (7-18)
[2025-05-17 08:23] LABS: CREATININE, URINE 119.8 MG/DL (30.0-125.0); URINE SODIUM, RANDOM 79.0 mmol/l (40-220); URINE TOTAL PROTEIN 43.0 mg/dL (0-11.9)
[2025-05-17] MEDS: POTASSIUM CHLORIDE 20 MEQ POWDER PACKET PO SCH (09:45)
[2025-05-17] MEDS: K PHOS NEUTRAL 250 MG TABLET PO ONE (10:39)
[2025-05-17] MEDS ORDERED: AMOX250C PO (13:32)
[2025-05-17] MEDS ORDERED: POTA-88 PO (13:32)
[2025-05-17] MEDS ORDERED: PHOS250T5 PO (13:32)
[2025-05-17 15:00] VITALS: BP 150/52; TEMP 98.1; O2SAT 97
[2025-05-17] MEDS: GABAPENTIN 100 MG CAPSULE PO SCH (16:26)
[2025-05-17] MEDS ORDERED: ATORVASTATIN 10 MG TABLET PO SCH (22:00)
[2025-05-18] MEDS ORDERED: LOSARTAN POTASSIUM 50 MG TABLET PO SCH (09:00)
== END 2025-05-17 17:50 | disposition home or self-care (01) | DRG 372 ==
LOC: ER 23:25 → TELE 05-16 01:47 → MED 05-16 02:18
PROVIDERS: ADMIT Nurse Practitioner Acute Care; ATTEND Nurse Practitioner Acute Care
DX: A04.9 Bacterial intestinal infection, unspecified (principal); E87.20 Acidosis, unspecified; Z79.01 Long term (current) use of anticoagulants; I10 Essential (primary) hypertension; Z95.828 Presence of other vascular implants and grafts; F32.A Depression, unspecified; A08.4 Viral intestinal infection, unspecified; E86.0 Dehydration; K21.9 Gastro-esophageal reflux disease without esophagitis; M19.90 Unspecified osteoarthritis, unspecified site; I88.0 Nonspecific mesenteric lymphadenitis; M81.0 Age-related osteoporosis without current pathological fracture; Z86.711 Personal history of pulmonary embolism; Z79.899 Other long term (current) drug therapy; Z90.49 Acquired absence of other specified parts of digestive tract; Z86.718 Personal history of other venous thrombosis and embolism; Z79.83 Long term (current) use of bisphosphonates; M89.8X9 Other specified disorders of bone, unspecified site; E78.5 Hyperlipidemia, unspecified; R42 Dizziness and giddiness; R79.89 Other specified abnormal findings of blood chemistry; E86.9 Volume depletion, unspecified
CPT/HCPCS: 36415; 71045-TC; 80048-TC; 80076-TC; 81001; 82570-TC; 83605-TC; 83735-TC; 84100-TC; 84300-TC; 85025-TC; 85730-TC; 87040-TC; 87045-TC; 87086-TC; 89055; A4216; A4223; G0378; J0744; J2405; J7030; J7120